=== PATIENT | female | born 1950 | race Caucasian/White ===

== ENCOUNTER 2022-12-20 05:45 | Inpatient (IN) | payer OTHER ==
[~2022-12-20] VITALS: Ht 157.5 cm; Wt 86.0 kg
[~2022-12-20 05:45] MED LIST: HYDR25TA2 PO; LOSA-382 PO; METO-558 PO; RINGERS SOLUTION,LACTATED 1,000 ML IV ONE
[2022-12-20] MEDS ORDERED: RINGERS SOLUTION,LACTATED 1,000 ML IV ONE ×2 (06:00→08:05)
[2022-12-20] MEDS ORDERED: ETHYL ALCOHOL 62% ANTISEPTIC NASAL SANITIZER 0.6 ML AMPUL NASAL ONE (06:00)
[2022-12-20] MEDS ORDERED: BUPIVACAINE LIPOSOME/PF 1.3%-13.3MG/ML SUSPENSION 20 ML VIAL INJ ONE ×2 (06:15→08:00)
[2022-12-20] MEDS ORDERED: TRANEXAMIC ACID 1,000 MG/10 ML VIAL ONE (06:17)
[2022-12-20] MEDS ORDERED: BUPIVACAINE HCL/PF 0.5% 30 ML VIAL ONE (06:18)
[2022-12-20] MEDS ORDERED: SODIUM CL IRRIG SOLN BAG 3,000 ML IRRIG ONE (06:18)
[2022-12-20] MEDS ORDERED: SODIUM CHLORIDE 0.9% 60 ML ONE (06:18)
[2022-12-20] MEDS ORDERED: VANCOMYCIN HCL 1 GM/VIAL ONE (06:18)
[2022-12-20] MEDS ORDERED: MEPERIDINE-PF 25 MG/ML VIAL IVP PRN (07:00)
[2022-12-20] MEDS ORDERED: CYCLOBENZAPRINE HCL 10 MG TABLET PO PRN (07:00)
[2022-12-20] MEDS ORDERED: ONDANSETRON HCL 4 MG/2 ML VIAL IVP PRN ×2 (07:00→09:30)
[2022-12-20] MEDS ORDERED: HYDROmorphone HCL 2 MG/ML SYRINGE IVP PRN ×2 (07:00)
[2022-12-20] MEDS ORDERED: OxyCODONE HCL 5 MG IR TABLET PO PRN (07:00)
[2022-12-20] MEDS ORDERED: ZOLPIDEM TARTRATE 5 MG TABLET PO PRN (07:00)
[2022-12-20] MEDS ORDERED: CELECOXIB 200 MG CAPSULE PO ONE (07:00)
[2022-12-20] MEDS ORDERED: FentaNYL CITRATE PF 100 MCG/2 ML VIAL IVP PRN (07:00)
[2022-12-20] MEDS ORDERED: SODIUM CHLORIDE 0.9% 100 ML ONE (07:02)
[2022-12-20] MEDS ORDERED: CELECOXIB 200 MG CAPSULE ONE (07:10)
[2022-12-20] MEDS: ACETAMINOPHEN 1000 MG/ISO-OSM 100 ML IV SCH ×2 (07:12→19:49)
[2022-12-20] MEDS ORDERED: OXYGEN THERAPY IH SCH (08:00)
[2022-12-20] MEDS ORDERED: BUPIVACAINE HCL/PF 0.5% 30 ML VIAL PERC ONE (08:00)
[2022-12-20] MEDS ORDERED: TRANEXAMIC ACID 1,000 MG/10 ML VIAL IV ONE (08:30)
[2022-12-20] MEDS ORDERED: VANCOMYCIN HCL 1 GM/VIAL IRRIG ONE (08:40)
[2022-12-20] MEDS ORDERED: MAG HYDROX/AL HYDROX/SIMETH 30 ML SUSP UDCUP PO PRN (09:30)
[2022-12-20] MEDS ORDERED: DiphenhydrAMINE HCL 50 MG/ML VIAL IVP PRN (09:30)
[2022-12-20] MEDS ORDERED: BISACODYL 10 MG RECTAL RECTAL SUPPOSITORY PR PRN (09:30)
[2022-12-20] MEDS ORDERED: OxyCODONE HCL/ACETAMINOPHEN 10-325 MG TABLET ONE (13:29)
[2022-12-20] MEDS: OxyCODONE HCL/ACETAMINOPHEN 10-325 MG TABLET PO PRN (13:33)
[2022-12-20] MEDS: CeFAZolin 2 GM/DEXTROSE 50 ML IV SCH ×2 (18:21→23:32)
[2022-12-20 19:11] VITALS: BP 122/72
[2022-12-20 19:55] LABS: MAGNESIUM 2.1 mg/dL (1.80-2.40); PHOSPHORUS 3.5 mg/dL (2.5-4.9)
[2022-12-20] MEDS: DOCUSATE SODIUM 100 MG CAPSULE PO SCH (19:55)
[2022-12-20] MEDS: CELECOXIB 200 MG CAPSULE PO SCH (21:09)
[2022-12-20] MEDS: FAMOTIDINE 20 MG TABLET PO SCH (21:09)
[2022-12-21] MEDS: ACETAMINOPHEN 1000 MG/ISO-OSM 100 ML IV SCH ×2 (00:39→06:27)
[2022-12-21 00:45] VITALS: BP 100/55
[2022-12-21 04:44] VITALS: BP 105/60
[2022-12-21] MEDS ORDERED: EPHEDrine SULFATE 50 MG/ML VIAL IM ONE (05:55)
[2022-12-21] MEDS ORDERED: FentaNYL CITRATE PF 100 MCG/2 ML VIAL IVP ONE (05:55)
[2022-12-21] MEDS ORDERED: GLYCOPYRROLATE 0.2 MG/ML VIAL IM ONE (05:55)
[2022-12-21] MEDS ORDERED: ACETAMINOPHEN/ISO-OSM 1000 MG/100 ML BOTTLE IV ONE (05:55)
[2022-12-21] MEDS ORDERED: 0.9% SODIUM CHLORIDE 10 ML VIAL IVP ONE (05:55)
[2022-12-21] MEDS ORDERED: PROPOFOL 1% ISO-OSM 1000 MG/100 ML BOTTLE IV ONE (05:55)
[2022-12-21 06:17] LABS: BASOPHILS % (AUTO) 0.2 % (0.0-2.0); EOSINOPHILS % (AUTO) 3.1 % (1.0-6.0); HEMATOCRIT 34.7 % (36-46); HEMOGLOBIN 11.9 g/dL (12.0-16.0); LYMPHOCYTES # (AUTO) 1.2 K/uL (1.0-4.8); LYMPHOCYTES % (AUTO) 13.9 % (22.0-44.0); MEAN CORPUSCULAR HEMOGLOBIN 33.9 pg (26.0-34.0); MEAN CORPUSCULAR HGB CONC 34.2 G/dL (31.0-37.0); MEAN CORPUSCULAR VOLUME 99 fL (80-100); MONOCYTES # (AUTO) 0.7 K/uL (0.1-1.0); MONOCYTES % (AUTO) 8.6 % (2.0-9.0); NEUTROPHILS # (AUTO) 6.2 K/uL (1.8-7.7); NEUTROPHILS % (AUTO) 74.2 % (40.0-70.0); PLATELET COUNT (AUTO) 175 K/uL (150-450); RED CELL DISTRIBUTION WIDTH 13.8 % (11.5-14.5)
[2022-12-21 06:30] LABS: ANION GAP 9 mmol/L (8-16); CALCIUM, TOTAL 8.8 mg/dL (8.8-10.5); CARBON DIOXIDE 29 mmol/L (22-29); CHLORIDE 99 mmol/L (98-107); CREATININE 0.77 mg/dL (0.60-1.30); GLOMERULAR FILTR. RATE CALC > 60 mL/min (>60); GLUCOSE,RANDOM 141 mg/dL (70-110); SODIUM SERUM 137 mmol/L (136-145)
[2022-12-21 07:49] VITALS: BP 112/72
[2022-12-21] MEDS ORDERED: METOPROLOL SUCCINATE 50 MG ER TABLET PO SCH (09:00)
[2022-12-21] MEDS ORDERED: LOSARTAN POTASSIUM 50 MG TABLET PO SCH (09:00)
[2022-12-21] MEDS ORDERED: ASPIRIN 81 MG CHEWABLE TABLET PO SCH (09:00)
[2022-12-21] MEDS: DOCUSATE SODIUM 100 MG CAPSULE PO SCH (09:12)
[2022-12-21] MEDS: CELECOXIB 200 MG CAPSULE PO SCH (09:13)
[2022-12-21] MEDS: FAMOTIDINE 20 MG TABLET PO SCH (09:13)
[2022-12-21 11:32] VITALS: BP 112/67
[2022-12-21 15:52] VITALS: BP 141/72
[2022-12-21] MEDS: OxyCODONE HCL/ACETAMINOPHEN 10-325 MG TABLET PO PRN (16:21)
[2022-12-22] MEDS ORDERED: METOPROLOL SUCCINATE 50 MG ER TABLET PO SCH (09:00)
[2022-12-22] MEDS ORDERED: LOSARTAN POTASSIUM 50 MG TABLET PO SCH (09:00)
== END 2022-12-21 18:50 | DRG 470 ==
LOC: 6N 05:45 → 5S 14:55
PROVIDERS: ADMIT Orthopaedic Surgery; ATTEND Hospitalist
PROC: 0SRC0J9 Replacement of Right Knee Joint with Synthetic Substitute, Cemented, Open Approach (ICD-10-PCS; principal; 2022-12-20 07:30)
DX: M17.11 Unilateral primary osteoarthritis, right knee (principal); I10 Essential (primary) hypertension; E66.9 Obesity, unspecified; I49.3 Ventricular premature depolarization; Z79.899 Other long term (current) drug therapy; Z68.34 Body mass index [BMI] 34.0-34.9, adult
CPT/HCPCS: 80048; 83735; 84100; 85025; 87081; 93005; 97110; 97116; 97162; 97166; 97530; 97535; C9290; J0131; J0690; J2704; J3010; J3370; J3490; J7050; J7120